=== PATIENT | male | born 1985 | race Caucasian/White ===

== ENCOUNTER 2017-03-23 12:54 | Emergency (ER) | payer OTHER, MEDICAID ==
[~2017-03-23] VITALS: Ht 180.3 cm; Wt 92.4 kg
[2017-03-23 13:05] VITALS: BP 136/87
[2017-03-23] MEDS ORDERED: HYDROcodone/APAP 5/325 TABLET PO ONE (13:30)
[2017-03-23] MEDS ORDERED: METHOCARBAMOL 750 MG TABLET PO ONE (13:30)
[2017-03-23] MEDS ORDERED: KETOROLAC 30 MG/1 ML IM ONE (13:30)
[2017-03-23] MEDS ORDERED: KETOROLAC 30 MG/1 ML ONE ×2 (14:22→14:23)
[2017-03-23] MEDS ORDERED: HYDROcodone/APAP 5/325 TABLET ONE (14:22)
[2017-03-23] MEDS ORDERED: METHOCARBAMOL 750 MG TABLET ONE (14:22)
== END 2017-03-23 15:19 | disposition home or self-care (01) ==
LOC: ED 15:00
DX: S76.011A Strain of muscle, fascia and tendon of right hip, initial encounter (principal); W22.8XXA Striking against or struck by other objects, initial encounter; Y93.89 Activity, other specified; Y92.328 Other athletic field as the place of occurrence of the external cause; Y99.8 Other external cause status
CPT/HCPCS: 73502; 96372; 99284; J1885